=== PATIENT | female | born 1980 | race Caucasian/White ===

== ENCOUNTER → 2020-04-17 10:46 | Outpatient (CLI) | payer OTHER, SELFPAY ==
--- NOTE | ~2020-04-17 | MM_ITS ---
EXAMINATION: MM screening renzo BI w [facility] HISTORY: Screening mammogram TECHNIQUE: Craniocaudal and mediolateral oblique 3-D tomosynthesis images were obtained and synthetic 2-D images were generated. CAD analysis was submitted and interpreted. COMPARISON: None, baseline BREAST PARENCHYMAL COMPOSITION: There are scattered areas of fibroglandular density. FINDINGS: RIGHT BREAST: Focal asymmetry is present in the middle third of the central right breast. LEFT BREAST: There is no evidence of suspicious mass, calcification, or architectural distortion to s uggest malignancy. IMPRESSION: 1. Focal asymmetry of the central right breast. 2. Additional mammographic views and possible breast ultrasound are recommended to evaluate for malig shannan and establish a baseline given that this is the first mammographic examination. BI-RADS Category 0: Incomplete: Needs additional imaging evaluation. Reviewed, dictated and finalized at location A. RATORY ASSOCIATE IMPRESSION: 1. Focal asymmetry of the central right breast. 2. Additional mammographic views and possible breast ultrasound are recommended to evaluate for malignancy and establish a baseline given that this is the fir st mammographic examination. BI-RADS Category 0: Incomplete: Needs additional imaging evaluation.
== END ==
PROVIDERS: PCP Internal Medicine
DX: Z12.31 Encounter for screening mammogram for malignant neoplasm of breast (principal); R92.8 Other abnormal and inconclusive findings on diagnostic imaging of breast
CPT/HCPCS: 77063; 77067

== ENCOUNTER → 2020-05-22 08:59 | Outpatient (CLI) | payer OTHER, SELFPAY ==
--- NOTE | ~2020-05-22 | MMUS_ITS ---
EXAMINATION: MM diagnostic renzo RT w [facility], US breast RT limited HISTORY: 04/17/2020 screening mammogram report of focal asymmetry of central right breast TECHNIQUE: Additional 3-D tomosynthesis images of right breast were performed and synthetic 2-D image s were generated. CAD analysis was submitted and interpreted. High resolution upper outer and upper i nner right breast ultrasound was performed. COMPARISON: 04/17/2020 bilateral digital screening mammogram FINDINGS: MAMMOGRAPHIC FINDINGS: No reproducible mass or architectural distortion, malignant calcification, skin thickening or retract ion is evident. ULTRASOUND: No suspicious mass or shadowing is detected. No cyst is identified. IMPRESSION: 1. No mammographic evidence of malignancy 2. Routine annual mammographic screening is recommended. BI-RADS Category 1: Negative Reviewed, dictated and finalized at location A. NOLOGY PROFESSIONAL IMPRESSION: 1. No mammographic evidence of malignancy 2. Routine annual mammographic screening is recommended. BI-RADS Category 1: Negative
== END ==
PROVIDERS: Visit Provider Obstetrics & Gynecology
DX: R92.8 Other abnormal and inconclusive findings on diagnostic imaging of breast (principal)
CPT/HCPCS: 76642; 77061; 77065; G0279

== ENCOUNTER → 2022-02-04 09:09 | Outpatient (CLI) | payer OTHER, SELFPAY ==
--- NOTE | ~2022-02-04 | XR_ITS ---
EXAMINATION: XR knee LT 3V DATE: 02/04/2022 09:24 INDICATION: Left knee lump. TECHNIQUE: 2 views of left knee standing were obtained. COMPARISON: None. FINDINGS: Bone alignment is normal. No fracture. There is mild tricompartmental osteoarthritis charac terized by tiny osteophytes. No joint space narrowing. No knee joint effusion. IMPRESSION: 1. Mild left knee osteoarthritis. Reviewed, dictated and finalized at location B.
== END ==
PROVIDERS: PCP Internal Medicine; Visit Provider Nurse Practitioner
DX: M25.569 Pain in unspecified knee (principal); M17.12 Unilateral primary osteoarthritis, left knee
CPT/HCPCS: 73562